=== PATIENT | female | born 2000 | race Caucasian/White ===

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

== ENCOUNTER 2019-04-05 19:44 | Emergency (ER) | payer OTHER ==
[~2019-04-05] VITALS: Ht 160 cm; Wt 58.1 kg
[2019-04-05 19:48] VITALS: Ht 160 cm; Wt 58.1 kg
[2019-04-05 21:05] VITALS: BP 123/69
== END 2019-04-05 21:05 | disposition home or self-care (01) ==
LOC: ED 19:44
DX: H10.13 Acute atopic conjunctivitis, bilateral (principal)

== ENCOUNTER 2019-10-04 11:06 | Emergency (ER) | payer OTHER ==
[~2019-10-04] VITALS: Ht 160 cm; Wt 55.3 kg
[2019-10-04 11:41] VITALS: Ht 160 cm; Wt 55.3 kg
[2019-10-04 12:52] VITALS: BP 124/73
== END 2019-10-04 12:52 | disposition home or self-care (01) ==
LOC: ED 11:06
DX: J02.9 Acute pharyngitis, unspecified (principal); J98.01 Acute bronchospasm; F32.9 Major depressive disorder, single episode, unspecified; F41.9 Anxiety disorder, unspecified

== ENCOUNTER 2019-10-23 04:10 | Emergency (ER) | payer OTHER ==
[~2019-10-23] VITALS: Ht 160 cm; Wt 55.8 kg
[2019-10-23 04:18] VITALS: Ht 160 cm; Wt 55.8 kg
[2019-10-23 06:05] VITALS: BP 101/48
== END 2019-10-23 06:05 | disposition home or self-care (01) ==
LOC: ED 04:10
DX: J20.9 Acute bronchitis, unspecified (principal)
CPT/HCPCS: Q0092